=== PATIENT | male | born 1985 | race Caucasian/White ===

== ENCOUNTER 2017-01-19 13:04 | Emergency (ER) | payer OTHER ==
[~2017-01-19] VITALS: Ht 185.4 cm; Wt 97.5 kg
[~2017-01-19 13:04] MED LIST: AZIT250T6 PO
[2017-01-19 13:40] LABS: BASO % 0 % (0-3); EOS % 1 % (0-3); HEMATOCRIT 44.4 % (39.0-53.0); HEMOGLOBIN 15.6 g/dL (13.0-17.5); LYMPH # 2.3 x10^3/uL (1.0-4.8); LYMPH % 29 % (24-48); MEAN CORPUSCULAR HEMOGLOBIN 31 pg (25-35); MEAN CORPUSCULAR HGB CONC 35 g/dL (31-37); MEAN CORPUSCULAR VOLUME 89 fL (79-100); MONO # 0.4 x10^3/uL (0.0-1.1); MONO % 5 % (0-9); NEUT # 5.1 x10^3uL (1.8-7.7); NEUT % 65 % (31-73); PLATELET COUNT 285 x10^3/uL (140-400); RED CELL DISTRIBUTION WIDTH 12.5 % (11.5-14.5); WHITE BLOOD COUNT 7.9 x10^3/uL (4.0-11.0)
[2017-01-19 13:55] LABS: ALBUMIN/GLOBULIN RATIO 0.9 (1.0-1.7); C REACTIVE PROTEIN 9.2 mg/L (0-3.3); CALCIUM 9.2 mg/dL (8.5-10.1); CREATININE 0.8 mg/dL (0.7-1.3); GFR 114.3; POTASSIUM 3.9 mmol/L (3.5-5.1); TOTAL BILIRUBIN 0.4 mg/dL (0.2-1.0); TOTAL PROTEIN 8.6 g/dL (6.4-8.2)
--- NOTE | 2017-01-19 15:10 | RAD ---
INDICATION: Testicular pain. COMPARISON: None. TECHNIQUE: Grayscale, color and spectral doppler ultrasound images obtained of the scrotum. FINDINGS: Right Testicle: 4.6 x 3.2 x 2.4 cm. Vascular flow is identified. Left Testicle: 4.4 x 2.7 x 1.8 cm. Vascular flow is identified. IMPRESSION: 1. Vascular flow is identified to the bilateral testicles.
--- NOTE | 2017-01-19 15:13 | PHYS DOC ---
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 Patient states he's been evaluated at [facility] in the past for low back pain and inguinal discomfort. He is on gabapentin for his low back symptoms and has a general surgical referral pending regarding inguinal hernia. She denies any new or recent strenuous activity or trauma, low back discomfort described as achy moderate bilateral low back with radiation to right gluteus no leg radiation. No leg weakness no saddle anesthesia or bowel or bladder symptoms associated. Patient's primary concern is left testicular pain described as severe and persistent. He states that he first experienced this discomfort after intercourse with his spouse 3 days ago upon ejaculation. He states the symptoms were severe however resolved quickly without intervention. He is monogamous denies any penile discharge or dysuria or other urinary symptoms. Patient states he awoke this morning with an erection and stood up to go to the restroom. When he stood he experienced severe sudden onset of sharp left testicular pain which is persistent. No exacerbating or relieving factors, he denies swelling or discoloration of the penis or testicle. He is in moderate distress due to discomfort on ED arrival. Patient admits that he has general surgery referral pending regarding inguinal hernias however this discomfort is very different. Timing/Duration: 4-6 hours Severity: severe Modifying Factors: improves with other Associated Symptoms: other Allergies: Coded Allergies: No Known Drug Allergies (Unverified , 01/19/17) Past Medical History Medical History: no pertinent history Surgical History: appendectomy Social History Smoker: non-smoker Alcohol: none Drugs: none Review of Systems Constitutional: denies chills, denies fever, denies malaise Respiratory: denies cough, denies shortness of breath Cardiovascular: denies chest pain, denies palpitations Gastrointestinal: denies abdominal pain, denies constipation, denies diarrhea, denies nausea, denies vomiting Genitourinary: see HPI Musculoskeletal: see HPI Psychiatric/Neurological: denies headache, denies numbness, denies paresthesia , denies weakness Hematologic/Lymphatic: denies blood clots, denies easy bleeding, denies easy bruising Physical Exam General Appearance: WD/WN, moderate distress Ear, Nose, Throat: hearing grossly normal, normal ENT inspection Neck: non-tender, supple Respiratory: normal breath sounds, no respiratory distress Cardiovascular: normal peripheral pulses, regular rate, rhythm Gastrointestinal: normal bowel sounds, non tender, soft, other (due to patient' s severe symptoms and ED volume ultrasound ordered on ED arrival. Physical exam after ultrasound, bilateral inguinal hernia deficits noted no abdominal contents extrusion hernias are reducible bilaterally no evidence of incarceration. Left and right testicle as well as penis exhibits normal physical exam without "blue dot" or other skin changes. 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 PHYSICIAN: AIDAN STILES DO REASON: TESTICULAR PAIN LEFT PROCEDURE: TESTICULAR/SCROTUM INDICATION: Testicular pain. COMPARISON: None. TECHNIQUE: Grayscale, color and spectral doppler ultrasound images obtained of the scrotum. FINDINGS: Right Testicle: 4.6 x 3.2 x 2.4 cm. Vascular flow is identified. Left Testicle: 4.4 x 2.7 x 1.8 cm. Vascular flow is identified. IMPRESSION: 1. Vascular flow is identified to the bilateral testicles. DICTATED AND SIGNED BY: RAJENDRA BUTLER MD DATE: 01/19/17 1506 CC: ZAK JOINER MD; AIDAN STILES DO ~ CRP 9.2 otherwise labs unremarkable no urine specimen given patient states he is ready for discharge without waiting for urine studies. I discussed the treatment plan patient expressed agreement and understanding of same, his symptoms have been relieved with medications in the emergency department. Departure Time of Disposition: 15:23 Disposition: 01 HOME, SELF-CARE Diagnosis: reducible left inguinal hernia, chronic back pain Condition: GOOD Patient Instructions: Hernia Additional Instructions: Continue your activity restrictions until general surgical evaluation. Aggressive hydration and [id number] stool softeners to prevent constipation with pain medications. Prescription: Naprosyn, [place] 5 mg quantity 20 Take medications with food. Follow-up at [facility] in 1-2 days for recheck and to check status of Gen. surgery referral. Return to ED with new or changing symptoms. AIDAN STILES DO Jan 19, 2017 15:13
[2017-01-19] MEDS ORDERED: NAPR500T PO (15:23)
[2017-01-19] MEDS ORDERED: HYDR-971 PO (15:23)
[2017-01-19 15:33] VITALS: BP 127/94
== END 2017-01-19 15:34 | disposition home or self-care (01) ==
LOC: ER 13:04
DX: K40.90 Unilateral inguinal hernia, without obstruction or gangrene, not specified as recurrent (principal); G89.29 Other chronic pain; Z90.49 Acquired absence of other specified parts of digestive tract
CPT/HCPCS: 36415; 76870; 80053; 82550; 85025; 86140; 96374; 99285; J3010